=== PATIENT | female | born 1945 | race Caucasian/White ===

== ENCOUNTER 2017-04-07 14:13 | Inpatient (IN) ==
[2017-04-07] MEDS ORDERED: ONDANSETRON 4 MG/2 ML VIAL IV STA (16:09)
[2017-04-07] MEDS ORDERED: ASPIRIN 325 MG TABLET PO STA (16:09)
[2017-04-07] MEDS ORDERED: NITROGLYCERIN 2% OINT 1 INCH/GM PACK TOP STA (16:09)
[2017-04-07] MEDS ORDERED: MORPHINE 2 MG/1 ML SYRINGE IV STA (16:09)
[2017-04-07] MEDS ORDERED: FUROSEMIDE 100 MG/10 ML VIAL IV STA (16:09)
[2017-04-07] MEDS ORDERED: MORPHINE 2 MG/1 ML SYRINGE ONE (16:48)
[2017-04-07] MEDS ORDERED: ONDANSETRON 4 MG/2 ML VIAL ONE (16:48)
[2017-04-07] MEDS ORDERED: ASPIRIN 325 MG TABLET ONE (16:48)
[2017-04-07] MEDS ORDERED: NITROGLYCERIN 2% OINT 1 INCH/GM PACK TOP ONE (16:48)
[2017-04-07] MEDS ORDERED: FUROSEMIDE 100 MG/10 ML VIAL ONE (16:48)
[2017-04-07 16:53] LABS: Basophils # 0.1 10*3/uL (0.0-0.2); Basophils % 0.5 % (0.0-0.8); Eosinophils # 0.1 10*3/uL (0.0-0.87); Eosinophils % 0.9 % (0.00-10.9); Hematocrit 42.7 VOL% (35.7-47.0); Immature Granulocytes % 0.4 %; Immature Granulocytes Absolute 0.04 #; Lymphocytes # 2.8 10*3/uL (1.4-4.0); Mean Corpuscular HGB Conc 32.8 GM/DL (32-36); Mean Corpuscular Hemoglobin 31 PG (27-34); Mean Corpuscular Volume 94.1 FL (87-102); Mean Platelet Volume 10.1 FL (9.6-12.0); Monocytes # 0.7 10*3/uL (0.11-0.8); Neutrophils # 6.7 10*3/uL (1.4-7.4); Neutrophils % 64.2 % (38.7-73.9); Platelet Count 190 T/CUMM (130-400); Red Blood Count 4.54 MC/CUMM (3.8-5.5); White Blood Count 10.4 T/CUMM (4-12)
[2017-04-07 17:04] LABS: Apearance,Urine CLEAR (Clear); Bilirubin,Urine Negative (Negative); Blood, Urine Negative (Negative); Glucose,Urine (UA) Negative (Negative); Ketones,Urine Negative (Negative); Nitrite,Urine Negative (Negative); Protein,Urine Negative; RBC,Urine 1 /HPF (0-4); Squamous Epithelial Cell,Urine Occasional /HPF (0-10); Urine Color Straw (Yellow); Urine Specific Gravity 1.002 (1.001-1.035); Urine Urobilinogen < 2.0 EU/DL (0.2-1.0); WBC,Urine 34 /HPF (0-6)
[2017-04-07 17:06] LABS: PT Patient Result 10.4 SECS
[2017-04-07 17:16] LABS: Albumin 3.9 G/DL (3.4-5.0); Bilirubin,Total 0.4 MG/DL (0.2-1.0); Calcium 9.7 MG/DL (8.5-10.1); Osmolality,Calculated 287.8 MOS/KG (273-304); Total Protein 7.7 G/DL (6.4-8.3)
[2017-04-07 17:18] LABS: Troponin I Only 0.485 NG/ML (0.00-0.045)
[2017-04-07] MEDS ORDERED: HYDROmorphone 2 MG/1 ML VIAL ONE (19:06)
[2017-04-07] MEDS ORDERED: HEPARIN/NACL 0.9% 2 UNITS/ML 500 ML IV ONE (19:10)
[2017-04-07] MEDS ORDERED: LIDOCAINE 1% 20 ML VIAL ONE (19:10)
[2017-04-07] MEDS: ALTEPLASE 6 MG in SODIUM CHLORIDE 0.9% 120 ML IV SCH (19:42)
[2017-04-07] MEDS ORDERED: ALTEPLASE 6 MG in SODIUM CHLORIDE 0.9% 120 ML IV SCH (20:00)
[2017-04-07] MEDS ORDERED: ALTEPLASE 2 MG VIAL ONE (20:21)
[2017-04-07] MEDS ORDERED: SODIUM CHLORIDE 0.9% 1,000 ML IV SCH (21:00)
[2017-04-07 22:18] LABS: PT Patient Result 10.9 SECS; Partial Thromboplastin Time 23.2 SECS (0-40)
[2017-04-07 22:30] LABS: CKMB % 8.1 %
[2017-04-07 22:33] LABS: Troponin I Only 0.881 NG/ML (0.00-0.045)
[2017-04-07] MEDS: QUINAPRIL 20 MG TABLET PO SCH (22:34)
[2017-04-08] MEDS: ALTEPLASE 6 MG in SODIUM CHLORIDE 0.9% 120 ML IV SCH ×2 (02:20→20:42)
[2017-04-08 05:24] LABS: INR 1.1; PT Patient Result 11.5 SECS
[2017-04-08 05:44] LABS: CKMB % 5.7 %
[2017-04-08 05:48] LABS: Troponin I Only 1.15 NG/ML (0.00-0.045)
[2017-04-08 07:00] LABS: Calcium 8.6 MG/DL (8.5-10.1); Osmolality,Calculated 284.1 MOS/KG (273-304); Potassium 4.5 MMOL/L (3.5-5.1)
[2017-04-08 09:30] LABS: Partial Thromboplastin Time 25.1 SECS (0-40)
[2017-04-08] MEDS: QUINAPRIL 20 MG TABLET PO SCH ×2 (09:36→20:41)
[2017-04-08] MEDS: FEXOFENADINE 180 MG TABLET PO SCH (09:36)
[2017-04-08 09:53] LABS: CKMB % 5.4 %
[2017-04-08 09:55] LABS: Troponin I Only 0.88 NG/ML (0.00-0.045)
[2017-04-08 12:54] LABS: Basophils % 0.4 % (0.0-0.8); Eosinophils % 0.5 % (0.00-10.9); Hematocrit 38.5 VOL% (35.7-47.0); Hemoglobin 12.2 GM/DL (12.0-16.0); Immature Granulocytes % 0.3 %; Immature Granulocytes Absolute 0.02 #; Lymphocytes % 25.4 % (21.3-54.2); Mean Corpuscular HGB Conc 31.7 GM/DL (32-36); Mean Corpuscular Hemoglobin 31 PG (27-34); Mean Corpuscular Volume 97.5 FL (87-102); Mean Platelet Volume 10.9 FL (9.6-12.0); Monocytes # 0.7 10*3/uL (0.11-0.8); Monocytes % 8.6 % (1.7-12.7); Neutrophils % 64.8 % (38.7-73.9); Red Blood Count 3.95 MC/CUMM (3.8-5.5); Red Cell Distribution Width 13.2 % (9.3-17.3); White Blood Count 7.8 T/CUMM (4-12)
[2017-04-08 12:57] LABS: Platelet Count 143 T/CUMM (130-400)
[2017-04-08] MEDS: APIXABAN 5 MG TABLET PO SCH ×2 (13:18→20:41)
[2017-04-08 22:06] LABS: Partial Thromboplastin Time 30.1 SECS (0-40)
[2017-04-09 06:22] LABS: Calcium 8.3 MG/DL (8.5-10.1); Osmolality,Calculated 281.3 MOS/KG (273-304)
[2017-04-09 07:33] LABS: Risk Ratio 4.27; VLDL CHOLESTEROL 22.4 MG/DL
[2017-04-09] MEDS: FEXOFENADINE 180 MG TABLET PO SCH (09:16)
[2017-04-09] MEDS: QUINAPRIL 20 MG TABLET PO SCH ×2 (09:16→21:48)
[2017-04-09] MEDS ORDERED: DIAZEPAM 5 MG TABLET PO ONE (11:59)
[2017-04-09] MEDS: APIXABAN 5 MG TABLET PO SCH ×2 (19:06→21:47)
[2017-04-09 21:33] LABS: Partial Thromboplastin Time 27.3 SECS (0-40)
[2017-04-10 05:39] LABS: Calcium 8.3 MG/DL (8.5-10.1); Osmolality,Calculated 284.1 MOS/KG (273-304); Potassium 4.1 MMOL/L (3.5-5.1)
[2017-04-10 05:40] LABS: Basophils % 0.5 % (0.0-0.8); Eosinophils # 0.2 10*3/uL (0.0-0.87); Eosinophils % 3.8 % (0.00-10.9); Hematocrit 33.9 VOL% (35.7-47.0); Hemoglobin 11.2 GM/DL (12.0-16.0); Immature Granulocytes % 0.3 %; Immature Granulocytes Absolute 0.02 #; Lymphocytes # 1.4 10*3/uL (1.4-4.0); Lymphocytes % 22.1 % (21.3-54.2); Mean Corpuscular Hemoglobin 32 PG (27-34); Mean Corpuscular Volume 95.5 FL (87-102); Mean Platelet Volume 11.2 FL (9.6-12.0); Monocytes # 0.6 10*3/uL (0.11-0.8); Monocytes % 9.8 % (1.7-12.7); NRBC # 0.05 10*3/uL; Neutrophils % 63.5 % (38.7-73.9); Platelet Count 110 T/CUMM (130-400); Red Blood Count 3.55 MC/CUMM (3.8-5.5); Red Cell Distribution Width 12.8 % (9.3-17.3); White Blood Count 6.3 T/CUMM (4-12)
[2017-04-10] MEDS: FEXOFENADINE 180 MG TABLET PO SCH (08:30)
[2017-04-10] MEDS: QUINAPRIL 20 MG TABLET PO SCH ×2 (08:30→21:02)
[2017-04-10] MEDS: APIXABAN 5 MG TABLET PO SCH ×2 (08:30→21:01)
[2017-04-10 09:06] LABS: Partial Thromboplastin Time 28.8 SECS (0-40)
[2017-04-10] MEDS: CEFEPIME 1,000 MG in SODIUM CHLORIDE 0.9% 50 ML IV SCH (14:31)
[2017-04-10 21:49] LABS: Partial Thromboplastin Time 25.9 SECS (0-40)
[2017-04-11] MEDS: CEFEPIME 1,000 MG in SODIUM CHLORIDE 0.9% 50 ML IV SCH (00:38)
[2017-04-11 04:50] LABS: Basophils % 0.4 % (0.0-0.8); Eosinophils # 0.2 10*3/uL (0.0-0.87); Eosinophils % 4.2 % (0.00-10.9); Hematocrit 32.3 VOL% (35.7-47.0); Hemoglobin 10.3 GM/DL (12.0-16.0); Immature Granulocytes % 0.4 %; Immature Granulocytes Absolute 0.02 #; Lymphocytes # 1.2 10*3/uL (1.4-4.0); Lymphocytes % 23.1 % (21.3-54.2); Mean Corpuscular HGB Conc 31.9 GM/DL (32-36); Mean Corpuscular Hemoglobin 31 PG (27-34); Mean Platelet Volume 10.7 FL (9.6-12.0); Monocytes # 0.4 10*3/uL (0.11-0.8); Monocytes % 8.2 % (1.7-12.7); Neutrophils # 3.4 10*3/uL (1.4-7.4); Neutrophils % 63.7 % (38.7-73.9); Platelet Count 149 T/CUMM (130-400); Red Blood Count 3.33 MC/CUMM (3.8-5.5); Red Cell Distribution Width 12.9 % (9.3-17.3); White Blood Count 5.3 T/CUMM (4-12)
[2017-04-11 05:19] LABS: Calcium 8.4 MG/DL (8.5-10.1); Magnesium 2.1 MG/DL (1.8-2.4); Osmolality,Calculated 288.8 MOS/KG (273-304); Potassium 4.1 MMOL/L (3.5-5.1)
[2017-04-11] MEDS: QUINAPRIL 20 MG TABLET PO SCH (08:41)
[2017-04-11] MEDS: FEXOFENADINE 180 MG TABLET PO SCH (08:41)
[2017-04-11] MEDS: APIXABAN 5 MG TABLET PO SCH (08:41)
[2017-04-11 11:59] VITALS: BP 148/60
[2017-04-11] MEDS ORDERED: DILTIAZEM 100 MG VIAL.ADD IV ONE (13:07)
[2017-04-11] MEDS ORDERED: DILTIAZEM INJ 100 MG in SODIUM CHLORIDE 0.9% 100 ML IV SCH (13:30)
== END 2017-04-11 15:20 | disposition home or self-care (01) | DRG 166 ==
LOC: N.ED 14:13 → N.EDINP 18:54 → N.CC 19:03 → N.TELEN 04-10 15:56
PROVIDERS: ADMIT Internal Medicine Cardiovascular Disease; ATTEND Internal Medicine Cardiovascular Disease